=== PATIENT | male | born 1945 | race Caucasian/White ===

== ENCOUNTER → 2024-10-28 11:38 | Outpatient (REF) | payer MEDICARE, OTHER, SELFPAY ==
[2024-10-28 13:08] LABS: ALT (SGPT) 13 U/L (0-50); AST (SGOT) 19 U/L (17-59); Albumin 4.5 g/dl (3.5-5.0); Alkaline Phosphatase 75 U/L (38-126); Blood Urea Nitrogen 23 mg/dl (9-20); Calcium 9.8 mg/dl (8.4-10.2); Carbon Dioxide 26 mmol/L (22-30); Chloride 108 mmol/L (98-107); Glucose 99 mg/dl (70-99); Potassium 4.5 mmol/L (3.5-5.1); Sodium 141 mmol/L (135-145); Total Protein 8.0 g/dl (6.3-8.2); eGFR > 60.00
[2024-10-28 13:38] LABS: PSA, Total - Screen 1.56 ng/ml (0.0-4.0)
[2024-10-28 13:59] LABS: Glycohemoglobin (HgbA1c) 6.1 % (4.0-5.6)
== END ==
LOC: REG 11:38
PROVIDERS: ATTENDING PHYSICIAN Family Medicine
DX: Z00.00 Encounter for general adult medical examination without abnormal findings (principal); N40.1 Benign prostatic hyperplasia with lower urinary tract symptoms; E78.5 Hyperlipidemia, unspecified
CPT/HCPCS: 36415; 80053; 83036; G0103

== ENCOUNTER 2025-03-18 12:08 | Emergency (ER) | payer MEDICARE, OTHER, SELFPAY ==
[2025-03-18 12:09] VITALS: BP 138/68
[2025-03-18 12:30] LABS: Hematocrit 43.7 % (39.0-52.0); Hemoglobin 14.2 g/dL (13.0-18.0); Mean Corp Hgb Conc. 32.5 g/dL (33.0-37.0); Mean Corpuscular Volume 94.8 fL (80.0-94.0); Nucleated Red Blood Cells % 0 % (-); Platelet Count 263 10^3/uL (130-400); Red Cell Dist. Width 13.4 % (11.5-14.5)
[2025-03-18 12:42] LABS: ALT (SGPT) 15 U/L (0-50); AST (SGOT) 22 U/L (17-59); Albumin 4.4 g/dl (3.5-5.0); Alkaline Phosphatase 90 U/L (38-126); Blood Urea Nitrogen 17 mg/dl (9-20); Calcium 9.3 mg/dl (8.4-10.2); Carbon Dioxide 26 mmol/L (22-30); Chloride 101 mmol/L (98-107); Glucose 124 mg/dl (70-99); Potassium 4.3 mmol/L (3.5-5.1); Sodium 134 mmol/L (135-145); Total Protein 7.9 g/dl (6.3-8.2); eGFR > 60.00
--- NOTE | 2025-03-18 15:47 | ED.GENMED ---
History of Present Illness
<DAVON Zaragoza - Last Filed: 03/20/25 18:28>
General
Chief Complaint: Fainting/Passed Out
Source: patient
Exam Limitations: none
Time Seen by Provider: 03/18/25 15:47
Nursing documentation reviewed up to this point in time: agreed with
History of Present Illness
History of Present Illness:
Patient is a 79-year-old male presents to the ER for evaluation of syncopal episode. Patient presented via EMS was at it support analyst office when he had a witnessed syncopal episode. Patient reports he recently had retina surgery to his left eye
March 03 and was there for checkup. The physician was discussing a possible another procedure that he would need and he reports he felt very faint and fell like he was going to pass out. He had went to syncopal episode for 5 minutes as per
medics. He reports he has passed out several times in the past with similar episodes. He also did not eat anything today. He has no past medical history. He denies any chest pain prior to event. He is asymptomatic now.
Past History
<DAVON Zaragoza - Last Filed: 03/20/25 18:28>
Past History
ED Past Medical History: HTN and Hypercholesterolemia; Negative Asthma or NIDDM
ED Past Surgical History: None
Social History
Tobacco: Former smoker
Alcohol: Former
Personal:
Living: alone
Family History
Family History: Other (Father with a stroke at 86)
Phy Exam
<DAVON Zaragoza - Last Filed: 03/20/25 18:28>
General Physical Exam
General Presentation: no apparent distress
General age: appears stated age
General Skin: warm and dry
General Habitus: normal
General Mental: alert
General Hydration: appears well hydrated
Cardiovascular Exam
Cardiovascular Exam: regular rate/rhythm, no murmur and normal peripheral pulses
Pulmonary Exam
Pulmonary Exam: lungs clear and no respiratory distress
Neurological Exam
Neurological Exam: alert and oriented x3
Musculoskeletal Exam
Musculoskeletal Exam: full ROM
Skin Exam
Skin Exam: normal color and warm/dry
Psychiatric Exam
Psychiatric Exam: normal mood/affect
Course
<DAVON Zaragoza - Last Filed: 03/20/25 18:28>
Orders/Labs/Results
Orders:
Orders
03/18/25 12:13
Electrocardiogram (*1) Urgent
Reason for Study: Syncope
EKG- Treatment ONCE
03/18/25 12:14
Complete Blood Count/With Diff Urgent
Comprehensive Metabolic Panel Urgent
03/18/25 15:55
Orthostatic VS- Treatment ONCE
0.9% Sodium Chloride 1000 ml [Nss] 1,000 ml IV BOLUS
Abnormal Lab Results
03/18/25
12:14
RBC 4.61 L 10^6/uL
(4.70-6.10)
MCV 94.8 H fL
(80.0-94.0)
MCHC 32.5 L g/dL
(33.0-37.0)
Absolute Monos (auto) 0.7 H 10^3/uL
(0.1-0.6)
Lymphocytes % 16.2 L %
(20.5-51.1)
Sodium 134 L mmol/L
(135-145)
Glucose 124 H mg/dl
(70-99)
03/18/25 12:14
03/18/25 12:14
Vital Signs
Initial and Last Documented VS:
Initial Vital Signs
Temp Pulse Resp BP Pulse Ox
98.1 F 55 16 138/68 100
03/18/25 12:09 03/18/25 12:09 03/18/25 12:09 03/18/25 12:09 03/18/25 12:09
Last Documented Vital Signs
Temp Pulse Resp BP Pulse Ox
98.1 F 73 17 129/72 100
03/18/25 12:09 03/18/25 17:00 03/18/25 17:00 03/18/25 17:00 03/18/25 17:00
Fleet Technician consulted with Physician
Fleet Technician consulted with physician?: Yes
Name of Physician Consulted: Amauri
<Edison Baugh, DO - Last Filed: 03/18/25 17:08>
Orders/Labs/Results
Orders:
Orders
03/18/25 12:13
Electrocardiogram (*1) Urgent
Reason for Study: Syncope
EKG- Treatment ONCE
03/18/25 12:14
Complete Blood Count/With Diff Urgent
Comprehensive Metabolic Panel Urgent
03/18/25 15:55
Orthostatic VS- Treatment ONCE
0.9% Sodium Chloride 1000 ml [Nss] 1,000 ml IV BOLUS
Abnormal Lab Results
03/18/25
12:14
RBC 4.61 L 10^6/uL
(4.70-6.10)
MCV 94.8 H fL
(80.0-94.0)
MCHC 32.5 L g/dL
(33.0-37.0)
Absolute Monos (auto) 0.7 H 10^3/uL
(0.1-0.6)
Lymphocytes % 16.2 L %
(20.5-51.1)
Sodium 134 L mmol/L
(135-145)
Glucose 124 H mg/dl
(70-99)
03/18/25 12:14
03/18/25 12:14
Vital Signs
Initial and Last Documented VS:
Initial Vital Signs
Temp Pulse Resp BP Pulse Ox
98.1 F 55 16 138/68 100
03/18/25 12:09 03/18/25 12:09 03/18/25 12:09 03/18/25 12:09 03/18/25 12:09
Last Documented Vital Signs
Temp Pulse Resp BP Pulse Ox
98.1 F 73 17 129/72 100
03/18/25 12:09 03/18/25 17:00 03/18/25 17:00 03/18/25 17:00 03/18/25 17:00
<DAVON Zaragoza - Last Filed: 03/20/25 18:28>
MDM/Problems Addressed
Differential Diagnosis Includes:
Not limited vasovagal episode.
MDM/Problems Addressed:
Symptoms are consistent with likely vasovagal episode. Patient has had several episodes in the past. Patient is in no acute distress had no precipitating chest pain. Had no trauma this occurred while sitting in the it support analyst office in the
chair. EKG normal sinus rhythm with occasional PACs. Patient is afebrile normal white count, normal electrolytes. Will check orthostatics plan to hydrate however likely anticipate discharge as patient is very well-appearing
Chronic conditions affecting care:
History of vasovagal in the past.
<DAVON Zaragoza - Last Filed: 03/20/25 18:28>
*Pulse Oximetry
SaO2: 100
Oxygen Mode of Delivery: Room air
Patient hypoxic: no
*EKG
Interpreted by ED Provider?: Yes
Heart Rate: 67
Rate: normal
Rhythm: sinus and other (Sinus with PACs)
Ischemia: no ischemia
*Critical Care Note
Total Time (30-74mins, 75-104mins- exclusive of procedures): Not Applicable
ED Attending Note
<DAVON Zaragoza - Last Filed: 03/20/25 18:28>
-
Portions of this chart may have been created with voice recognition software.� Occasional wrong word or��sound alike� substitutions may have occurred due to the inherent limitations of voice recognition software.
<Edison Baugh DO - Last Filed: 03/18/25 17:08>
ED Attending Note
Patient seen and examined by attending physician: Yes
I performed the substantive portion of visit, reviewed & personally made and approve the management plan that is documented in note by myself or JULIO C.: Yes
ED Attending Note:
I have seen and evaluated the patient with a [id number] encounter. I have spoken to the advance practicer provider and involved in the medical history, the physical exam, medical decision making.
Evaluation and management service: agree unless noted differently below.
Results interpretation: agree unless noted differently below.
Focused HPI: 79-year-old male presenting with a syncopal event. This occurred at the doctor's office. Patient was at the eye doctor when he found out that they may have to do another eye procedure for his elevated pressure. Patient felt faint and
passed out. Patient attributes this to the stress and the fact that he did not eat breakfast this morning. On my assessment, patient denies any complaint
Physical exam: Sitting in bed comfortably. Patient had just eaten sandwich tray and drink water. No acute distress noted.
Medical Decision Making: EKG and blood work without significant abnormality. Patient feeling better after eating and drinking. We did discuss the likelihood of a vasovagal syncope but also discussed the possibility of a cardiac arrhythmia. We
discussed having this conversation with his primary care doctor. Patient states he feels comfortable going home
Discharge Plan
Departure
Patient Disposition: Home (Routine Discharge)
Date of Disposition: 03/18/25
Time of Disposition: 17:05
Patient with high blood pressure during this ER visit?: Yes
Condition: Fair
Covid-19: Not Applicable
Discharge Problem:
Syncope, vasovagal
Instructions: Syncope (Fainting) (DC), BLOOD PRESSURE
Referrals:
Sourav Mathur DO [Family Provider, Family Practice]
Activity Restrictions/Additional Instructions:
As discussed stay well-hydrated. Please follow closely with your family doctor in the next several days and return if any worsening of symptoms.
Given your passing out episode, please discuss with your primary care doctor whether or not it is worth getting a Holter monitor.
Interventions
Interventions:
*General Assessment Last Done: 03/18/25 16:20
*Neglect/Abuse Screening Last Done: 03/18/25 12:12
*ED COVID-19 Vaccine History Last Done: 03/18/25 16:20
*ED Influenza Vaccine History Last Done: 03/18/25 16:20
[facility] Risk Assessment Tool Last Done: 03/18/25 16:19
*Risk Screen - Suicide (C-SSRS) Last Done: 03/18/25 12:12
*Nursing Disposition Last Done: 03/18/25 17:30
ED- Cardiac Assessment Last Done: 03/18/25 16:33
ED- Neurological Assessment Last Done: 03/18/25 16:33
Discharge Date and Time
Discharge Date/Time: 03/18/25 17:30
Print Language: ROMANIAN
--- NOTE | 2025-03-18 15:49 | EDRN ---
Tarik avalos MEDICAL LIAISON in room w/ pt at this time.
[2025-03-18 16:19] VITALS: BMI 25.9
[2025-03-18 16:22] VITALS: BP 131/79
[2025-03-18 16:25] VITALS: BP 162/76
[2025-03-18] MEDS: NSS 1000 IV (16:25)
[2025-03-18 16:27] VITALS: BP 117/68; BP 131/79; BP 162/72; PULSE 72; PULSE 73; PULSE 75
--- NOTE | 2025-03-18 16:35 | EDRN ---
Pt given cup of water and boxed lunch per request of Tarik Mcdonnell NP.
[2025-03-18 17:00] VITALS: BP 129/72
== END 2025-03-18 17:30 | disposition home or self-care (01) ==
LOC: EMR 12:08
PROVIDERS: Emergency Medicine; EMERGENCY PHYSICIAN Student in an Organized Health Care Education/Training Program; FAMILY PHYSICIAN Family Medicine
DX: R55 Syncope and collapse (principal); I10 Essential (primary) hypertension; E78.00 Pure hypercholesterolemia, unspecified; Z87.891 Personal history of nicotine dependence
CPT/HCPCS: 99284; 96360; 80053; 85025; 93005